=== PATIENT | female | born 1955 | race Caucasian/White ===

== ENCOUNTER 2023-11-29 12:45 | Outpatient (CLI) | payer MEDICARE, OTHER | END 2023-11-29 23:59 | disposition critical access hospital (66) | LOC: EMS 12:45 | DX: S01.01XA Laceration without foreign body of scalp, initial encounter (principal); M54.2 Cervicalgia; R20.2 Paresthesia of skin; R11.0 Nausea; W00.0XXA Fall on same level due to ice and snow, initial encounter; Y93.01 Activity, walking, marching and hiking; Y92.89 Other specified places as the place of occurrence of the external cause | CPT/HCPCS: A0425; A0427 ==

== ENCOUNTER 2023-11-29 13:21 | Emergency (ER) | payer MEDICARE, OTHER ==
[2023-11-29] MEDS ORDERED: TETANUS/DIPHTHERIA/PERTUSSIS 0.5 ML SYRINGE IM ONE (13:26)
--- NOTE | 2023-11-29 14:24 | ED Physician Documentation ---
PD HPI HEAD INJURY - Stated complaint Stated Complaint: GLF/HEAD INJURY - Chief complaint Chief Complaint: Trauma Hd/Nk - History obtained from History obtained from: Patient - Additional information Additional information: Patient is a 68-year-old female presenting for evaluation of a head injury that occurred just prior to arrival. Patient excellently slipped on ice and fell backwards hitting her head. There is no LOC. She does have a scalp laceration. She is unsure of her last tetanus. She also reports neck pain. Patient transported here with a cervical collar on on place from EMS. Denies pain elsewhere.She does not take a blood thinner. Review of Systems Constitutional: denies: Fever Cardiac: denies: Chest pain / pressure Respiratory: denies: Dyspnea GI: denies: Abdominal Pain Neurologic: reports: Head injury PD PAST MEDICAL HISTORY - Present Medications Home Medications: Ambulatory Orders Medication Instructions Recorded Confirmed Aspirin Chewable [[facility] Antonino 81 mg PO DAILY 11/29/23 Aspirin] - Allergies Allergies/Adverse Reactions: Allergies Allergy/AdvReac Type Severity Reaction Status Date / Time No Known Drug Allergies Allergy Verified 11/29/23 13:31 PD ED PE NORMAL - General General: Alert and oriented X 3, No acute distress, Well developed/nourished - HEENT HEENT: PERRL, EOMI, Moist mucous membranes, Pharynx benign, Other (Posterior scalp laceration). No: Atraumatic - Neck Neck: No: C-Spine cleared by NEXUS criteria (Mild midline tenderness, cervical collar kept in place) - Cardiac Cardiac: RRR, Strong equal pulses - Respiratory Respiratory: No respiratory distress, Clear bilaterally - Abdomen Abdomen: Normal bowel sounds, Soft, Non tender, Non distended - Back Back: No spinal TTP - Derm Derm: Warm and dry - Extremities Extremities: No edema - Neuro Neuro: Alert and oriented X 3, No motor deficit, No sensory deficit, Normal speech Eye Opening: Spontaneous Motor: Obeys Commands Verbal: Oriented GCS Score: 15 Results - Vitals Vitals: Vital Signs - 24 hr 11/29/23 11/29/23 11/29/23 13:26 13:31 14:31 Temperature 36.5 C Heart Rate 84 71 Respiratory 18 17 16 Rate Blood Pressure 173/73 H 157/85 H O2 Saturation 999 H 98 11/29/23 16:00 Temperature Heart Rate 70 Respiratory 15 Rate Blood Pressure 168/79 H O2 Saturation 100 Oxygen O2 Source Room air Procedures - Laceration (location) scalp Length in cm: 2.5 Wound type: Irregular, Clean Anesthesia: Lidocaine 1% with epi Wound preparation: Hibiclens, Irrigated copiously NS Skin layer closure: Dwayne (6) Other: Patient tolerated well, No complications, Neurovascular intact, Tetanus booster given PD Medical Decision Making - ED course Complexity details: reviewed results, re-evaluated patient, d/w patient, d/w family ED course: Patient is a 68-year-old female presenting for evaluation of head injury after slip and fall on ice. Normal neuroexam. No blood thinners. She does have a laceration to her scalp. She did report neck pain so was kept in a cervical collar. CT head and cervical spine were obtained and reviewed and without significant findings. C-collar was removed and patient's C-spine was also cleared clinically. Her scalp laceration was irrigated and closed with 6 dwayne. She was given a tetanus booster. She is advised on need to return for staple removal. She is counseled on concerning symptoms to return for and ambulatory at discharge. Departure - Departure Disposition: 01 Home, Self Care Clinical Impression: Head injury, Scalp laceration Condition: Stable Instructions: ED Head Injury Closed, ED Laceration Scalp Stitch Or Stap Comments: The CT scans of your head and neck do not show any injuries fortunately from your fall. You do have a laceration to the back of your head that was closed with 6 dwayne. These should be kept in place for approximately 1 week. You can return to the ER or go to the walk-in clinic to have them removed. Please use acetaminophen for any areas of pain along with ice. Return to the ER with any new or worsening symptoms. Forms: PCP List Discharge Date/Time: 11/29/23 16:10
--- NOTE | 2023-11-29 14:56 | CT Report ---
PROCEDURE: Head WO INDICATIONS: head injury/scalp lac TECHNIQUE: Noncontrast 4.5 mm thick angled axial sections acquired from the foramen magnum to the vertex. For r adiation dose reduction, the following was used: automated exposure control, adjustment of mA and/or kV according to patient size. COMPARISON: None. FINDINGS: Image quality: Excellent. CSF spaces: Basal cisterns are patent. No extra-axial fluid collections. Ventricles are normal in size and shape. Brain: No midline shift. No intracranial masses or hemorrhage. Rangel-white matter interface is norm al. Skull and face: Calvarium and visualized facial bones are intact, without suspicious lesions. Left parietal subgaleal hematoma is present. Sinuses: Visualized sinuses and mastoids are clear. IMPRESSION: No acute intracranial pathology. Reviewed by: Vikki Greene MD on 11/29/2023 2:55 PM PST Approved by: Vikki Greene MD on 11/29/2023 2:55 PM PST Station ID: [id number]
--- NOTE | 2023-11-29 14:58 | CT Report ---
PROCEDURE: Cervical Spine WO INDICATIONS: head injury/neck pain TECHNIQUE: Noncontrast 3 mm thick sections acquired from the skull base to the T4 level. Sagittal and coronal r eformats were then constructed. For radiation dose reduction, the following was used: automated exp osure control, adjustment of mA and/or kV according to patient size. COMPARISON: None. FINDINGS: Image quality: Excellent. Bones: No fractures or dislocations. Visualized superior ribs are intact. Soft tissues: Prevertebral soft tissues are normal in thickness. No paravertebral hematomas. No ap ical pneumothoraces. IMPRESSION: No acute fracture. No osseous lesion. If symptoms and/or clinical suspicion for pathology continue, f urther assessment with MRI or bone scan may be helpful for further assessment. Reviewed by: Vikki Greene MD on 11/29/2023 2:57 PM PST Approved by: Vikki Greene MD on 11/29/2023 2:57 PM PST Station ID: [id number]
[2023-11-29 16:01] VITALS: BP 168/79; O2SAT 100
== END 2023-11-29 16:10 | disposition home or self-care (01) ==
LOC: EDUNIT# → ED 13:21
DX: S01.01XA Laceration without foreign body of scalp, initial encounter (principal); W00.0XXA Fall on same level due to ice and snow, initial encounter; Z23 Encounter for immunization
CPT/HCPCS: 12001; 90471; 99283; 99284

== ENCOUNTER 2024-05-18 09:58 | Outpatient (CLI) | payer MEDICARE, OTHER ==
--- NOTE | 2024-05-18 16:46 | MRI Report ---
PROCEDURE: MRI brain with and without contrast INDICATIONS: POST CONCUSSION HEADACHE TECHNIQUE: Multiplanar multisequential MR images of the brain were obtained without contrast COMPARISON: None FINDINGS: CSF Spaces: Basal cisterns are patent. No extra-axial fluid collections. Ventricles are normal in size and shape. Brain: No intracranial masses or hemorrhage. Rangel/white matter interface is normal. Brainstem appe ars normal. Diffusion-weighted images shows no evidence of acute infarct. Normal arterial intravasc ular flow voids are present. In the posterior aspect of the right temporal lobe cortex, there are several old punctate microhemorr hages. No associated atrophy or gliosis. Small tangle of vessels in the left frontal subcortical white matter is associated with a transcortic al self pay collector vein extending to the superficial venous system. Surrounding gliosis in the left frontal white matter noted. Atrophy and multifocal white matter chronic ischemic change Skull and face: Calvarium has normal marrow signal. Orbits appear normal. Sinuses: Sinuses and mastoids are clear. IMPRESSION: Punctate old multifocal cortical microhemorrhage noted in the posterior right temporal lobe. Differen tial would include sequelae of prior trauma or hypertensive encephalopathy. Left frontal developmental venous anomaly with surrounding white matter gliosis. Age-appropriate atrophy and multifocal white matter chronic ischemic change Reviewed by: José Saucedo MD on 05/18/2024 3:45 PM [email or web address] Approved by: José Saucedo MD on 05/18/2024 3:45 PM AKDT Station ID: [id number]
== END 2024-05-18 09:59 | disposition home or self-care (01) ==
LOC: DI 09:58
PROVIDERS: ATTEND Psychiatry & Neurology Neurology
DX: G44.309 Post-traumatic headache, unspecified, not intractable (principal); R26.89 Other abnormalities of gait and mobility; G93.89 Other specified disorders of brain; G31.9 Degenerative disease of nervous system, unspecified; I67.82 Cerebral ischemia; Q28.3 Other malformations of cerebral vessels